=== PATIENT | male | born 1960 | race Caucasian/White ===

== ENCOUNTER 2016-10-13 04:19 | Emergency (ER) | payer OTHER ==
[~2016-10-13] VITALS: Ht 177.8 cm; Wt 89.2 kg
[~2016-10-13 04:19] MED LIST: AFRIN,GENASAL D15 ML BOTH NARES; ALLOPURINOL; ALLOPURINOL300 MG PO; BACTRIM,SEPT1 TABLET PO; BENAZEPRIL HCL40 MG PO; BENICAR; BENTYL20 MG PO; COSOPT EYE DROPS5 ML RIGHT EYE; HYDROCODON-ACE1 EAC7 PO; LEVOTHYROXINE100 MCG PO; MONTELUKAST SOD10 MG PO; NABUMETONE750 MG PO; NAPROSYN500 MG PO; NEXIUM; PANTOPRAZOLE SO40 MG PO; PREDNISONE20 MG PO; PROBIOTIC1 EAC1 PO; SKELAXIN800 MG PO; SYNTHROID; TRAMADOL HCL50 MG PO; VALIUM5 MG PO; ZANTAC150 MG PO; ZYRTEC; ZYRTEC10 M2 PO; [UNRECOGNIZED DRUG - REMARK]
[2016-10-13 05:40] VITALS: BP 131/82
== END 2016-10-13 05:43 | disposition home or self-care (01) ==
LOC: EME 04:19
DX: G43.909 Migraine, unspecified, not intractable, without status migrainosus (principal); D32.9 Benign neoplasm of meninges, unspecified; E78.5 Hyperlipidemia, unspecified; I10 Essential (primary) hypertension; Z87.891 Personal history of nicotine dependence
CPT/HCPCS: 99281; 99284; J1885

== ENCOUNTER 2016-11-02 10:40 | Emergency (ER) | payer OTHER ==
[~2016-11-02] VITALS: Ht 177.8 cm; Wt 88.3 kg
[2016-11-02 12:52] LABS: CHLORIDE 104 mEq/L (99-109); POTASSIUM 4.2 mEq/L (3.7-5.4); SODIUM 141 mEq/L (136-147)
[2016-11-02 12:54] LABS: GLUCOSE 249 mg/dL (70-99)
[2016-11-02 12:55] LABS: ANION GAP 10 MEQ/L (2-14)
[2016-11-02 12:58] LABS: GFR ESTIMATE (CALCULATED) > 59 mL/min/
[2016-11-02 12:59] LABS: UREA NITROGEN (BUN) 11 mg/dL (9-23)
[2016-11-02] MEDS ORDERED: VALIUM5 MG PO (13:57)
[2016-11-02 14:07] VITALS: BP 147/109
== END 2016-11-02 14:08 | disposition home or self-care (01) ==
LOC: EME 10:40
PROVIDERS: Physician Assistant
DX: R42 Dizziness and giddiness (principal); E78.5 Hyperlipidemia, unspecified; I10 Essential (primary) hypertension; Z88.0 Allergy status to penicillin
CPT/HCPCS: 80048; 99281; 99283

== ENCOUNTER 2016-12-16 21:21 | Observation (INO) | payer OTHER ==
[~2016-12-16] VITALS: Ht 175.3 cm; Wt 88.5 kg
[~2016-12-16 21:21] MED LIST changes: +COSOPT EYE DROPS5 ML BOTH EYES; -COSOPT EYE DROPS5 ML RIGHT EYE
[2016-12-16 22:38] LABS: HEMATOCRIT 45.8 % (38.0-50.0); MCHC 32.8 G/DL (30.0-36.0); MCV 85.4 FL (86-99); MEAN PLAT.VOLUME 8.5 uM^3 (9.0-12.4); PLATELET COUNT 285 K/uL (156-360); RBC DIS.WIDTH-CV 12.7 % (11.8-14.6); RBC DIS.WIDTH-SD 39.4 % (39-53); RED BLOOD COUNT 5.36 M/uL (4.00-5.50); WHITE BLOOD COUNT 8.8 K/uL (4.1-10.2)
[2016-12-16 22:49] LABS: D-DIMER ELISA 0.17 mg/L FEU (< 0.57)
[2016-12-16 22:50] LABS: CHLORIDE 105 mEq/L (99-109); POTASSIUM 4.3 mEq/L (3.7-5.4); SODIUM 140 mEq/L (136-147)
[2016-12-16 22:52] LABS: GLUCOSE 170 mg/dL (70-99)
[2016-12-16 22:53] LABS: ANION GAP 12 MEQ/L (2-14)
[2016-12-16 22:55] LABS: GFR ESTIMATE (CALCULATED) > 59 mL/min/
[2016-12-16 22:56] LABS: UREA NITROGEN (BUN) 9 mg/dL (9-23)
[2016-12-16 23:01] LABS: TROP-I INTERPRETATION NEGATIVE; TROPONIN-I < 0.01 ng/mL (0.0-0.30)
[2016-12-17] MEDS ORDERED: GLIMEPIRIDE4 MG PO (00:58)
[2016-12-17] MEDS ORDERED: GINKGO BILOBA120 M1 PO (01:00)
[2016-12-17 02:17] VITALS: BP 156/85
[2016-12-17 07:41] LABS: HEMATOCRIT 41.3 % (38.0-50.0); MCH 27.5 PG (29.0-34.0); MCHC 32.2 G/DL (30.0-36.0); MCV 85.3 FL (86-99); MEAN PLAT.VOLUME 8.9 uM^3 (9.0-12.4); PLATELET COUNT 249 K/uL (156-360); RBC DIS.WIDTH-CV 12.8 % (11.8-14.6); RBC DIS.WIDTH-SD 39.8 % (39-53); RED BLOOD COUNT 4.84 M/uL (4.00-5.50); WHITE BLOOD COUNT 6.3 K/uL (4.1-10.2)
[2016-12-17 08:09] LABS: POINT-OF-CARE METER ID UU13113831
[2016-12-17 08:26] LABS: ALKALINE PHOSPHATASE 44 IU/L (3-129); ANION GAP 10 MEQ/L (2-14); CHLORIDE 103 MEQ/L (99-109); GFR ESTIMATE (CALCULATED) > 59 mL/min/; POTASSIUM 3.7 MEQ/L (3.7-5.4); SAMPLE HEMOLYSIS CHECK 0; SAMPLE ICTERIC CHECK 0; SAMPLE LIPEMIA CHECK 0; SODIUM 140 MEQ/L (136-147); TOTAL BILIRUBIN 0.5 MG/DL (0.0-1.0); UREA NITROGEN (BUN) 7 mg/dL (9-23)
[2016-12-17 08:27] LABS: GLUCOSE 111 mg/dL (70-99)
[2016-12-17 08:56] VITALS: BP 117/61
[2016-12-17 10:33] LABS: TROP-I INTERPRETATION NEGATIVE; TROPONIN-I < 0.01 ng/mL (0.0-0.30)
[2016-12-17 11:45] VITALS: BP 146/80
[2016-12-17 12:53] LABS: POINT-OF-CARE METER ID UU13113831
[2016-12-17 13:40] LABS: TROP-I INTERPRETATION NEGATIVE; TROPONIN-I < 0.01 ng/mL (0.0-0.30)
[2016-12-17] MEDS ORDERED: SKELAXIN800 MG PO (14:53)
== END 2016-12-17 16:20 | disposition home or self-care (01) ==
LOC: EME 21:21 → EDOF 12-17 00:47 → 5WEST 12-17 02:09
PROVIDERS: Emergency Medicine; Hospitalist; Internal Medicine
DX: R07.89 Other chest pain (principal); E11.65 Type 2 diabetes mellitus with hyperglycemia; I10 Essential (primary) hypertension; E78.00 Pure hypercholesterolemia, unspecified; E03.9 Hypothyroidism, unspecified; K21.9 Gastro-esophageal reflux disease without esophagitis; E66.9 Obesity, unspecified; Z68.28 Body mass index [BMI] 28.0-28.9, adult; Z87.891 Personal history of nicotine dependence
CPT/HCPCS: 71020; 80048; 80053; 82948; 83880; 84484; 85027; 85379; 93005; 99281; 99285; G0378; J1815

== ENCOUNTER → 2017-06-03 | Outpatient (CLI) | payer OTHER ==
[~2017-06-03] VITALS: Ht 177.8 cm; Wt 81.6 kg
[~2017-06-03] MED LIST changes: +GINKGO BILOBA120 M1 PO; +GLIMEPIRIDE4 MG PO; +NORTRIPTYLINE H10 MG PO
[2017-06-03 08:07] LABS: POINT-OF-CARE METER ID UU14107333
== END | disposition home or self-care (01) ==
LOC: AMB 06:43
PROVIDERS: Internal Medicine
DX: Z12.11 Encounter for screening for malignant neoplasm of colon (principal); D12.2 Benign neoplasm of ascending colon; D12.5 Benign neoplasm of sigmoid colon; D12.0 Benign neoplasm of cecum; K57.30 Diverticulosis of large intestine without perforation or abscess without bleeding; K64.8 Other hemorrhoids; K64.4 Residual hemorrhoidal skin tags; Z86.010 Personal history of colon polyps; J45.909 Unspecified asthma, uncomplicated; F41.9 Anxiety disorder, unspecified; G89.29 Other chronic pain; M54.2 Cervicalgia; J32.9 Chronic sinusitis, unspecified; G43.009 Migraine without aura, not intractable, without status migrainosus; E78.5 Hyperlipidemia, unspecified; R13.10 Dysphagia, unspecified; K21.9 Gastro-esophageal reflux disease without esophagitis; H40.059 Ocular hypertension, unspecified eye; M10.9 Gout, unspecified; K44.9 Diaphragmatic hernia without obstruction or gangrene; I10 Essential (primary) hypertension; E03.9 Hypothyroidism, unspecified; E11.9 Type 2 diabetes mellitus without complications; E55.9 Vitamin D deficiency, unspecified; Z88.0 Allergy status to penicillin; Z88.1 Allergy status to other antibiotic agents; Z88.8 Allergy status to other drugs, medicaments and biological substances
CPT/HCPCS: 82948; 88305; J2250; J3010

== ENCOUNTER 2017-08-30 03:44 | Emergency (ER) | payer OTHER ==
[~2017-08-30] VITALS: Ht 177.8 cm; Wt 88.5 kg
[2017-08-30 05:28] LABS: HEMATOCRIT 43.7 % (38.0-50.0); HEMOGLOBIN 14.9 G/DL (12.5-16.6); MCH 29.2 PG (29.0-34.0); MCHC 34.1 G/DL (30.0-36.0); MCV 85.7 FL (86-99); PLATELET COUNT 235 K/uL (156-360); RBC DIS.WIDTH-CV 13.2 % (11.8-14.6); RBC DIS.WIDTH-SD 41.2 % (39-53); WHITE BLOOD COUNT 10.1 K/uL (4.1-10.2)
[2017-08-30 05:34] LABS: CHLORIDE 103 mEq/L (99-109); POTASSIUM 3.8 mEq/L (3.7-5.4); SODIUM 140 mEq/L (136-147)
[2017-08-30 05:35] LABS: GLUCOSE 165 mg/dL (70-99)
[2017-08-30 05:39] LABS: CREATININE 0.8 mg/dL (0.6-1.3); GFR ESTIMATE (CALCULATED) > 59 mL/min/ (58.99-99999)
[2017-08-30 05:40] LABS: UREA NITROGEN (BUN) 15 mg/dL (9-23)
[2017-08-30 05:44] LABS: TROP-I INTERPRETATION NEGATIVE; TROPONIN-I < 0.01 ng/mL (0.0-0.30)
[2017-08-30 10:04] LABS: TROP-I INTERPRETATION NEGATIVE; TROPONIN-I < 0.01 ng/mL (0.0-0.30)
[2017-08-30 10:24] VITALS: BP 150/101
[2017-08-30] MEDS ORDERED: PROTONIX40 MG PO (10:28)
== END 2017-08-30 10:38 | disposition home or self-care (01) ==
LOC: EME 03:44
PROVIDERS: Emergency Medicine
DX: R07.89 Other chest pain (principal); Z87.891 Personal history of nicotine dependence; Z88.0 Allergy status to penicillin; E78.5 Hyperlipidemia, unspecified; G43.909 Migraine, unspecified, not intractable, without status migrainosus; R05 Cough; K21.9 Gastro-esophageal reflux disease without esophagitis
CPT/HCPCS: 71046; 80048; 84484; 85027; 93005; 99281; 99284

== ENCOUNTER → 2017-09-26 | Outpatient (CLI) | payer OTHER ==
[~2017-09-26] MED LIST changes: +PROTONIX40 MG PO
== END | disposition home or self-care (01) ==
LOC: RAD 09:03
DX: Z02.71 Encounter for disability determination (principal); M51.37 Other intervertebral disc degeneration, lumbosacral region; M46.87 Other specified inflammatory spondylopathies, lumbosacral region; M48.07 Spinal stenosis, lumbosacral region
CPT/HCPCS: 72100